=== PATIENT | male | born 1980 | race Caucasian/White ===

== ENCOUNTER 2016-06-10 14:14 | Emergency (ER) | payer MEDICAID ==
[2016-06-10 14:23] VITALS: BP 134/80
--- NOTE | 2016-06-10 14:43 | ERNOTE ---
Medical Problem HPI - Narrative Date of Service: 06/10/16 - General Chief Complaint: General Assessment Time Seen by Provider: 06/10/16 14:40 Source: patient Exam Limitations: no limitations - Immun/Allergies/Home Medications Immunizations: IMMUNIZATION HX Immunizations Up to Date Yes History of Influenza Vaccine No Hx Pneumococcal Vaccination No Allergies/Adverse Reactions: Allergies No Known Allergies Allergy (Verified 06/10/16 14:23) Home Medications: HOME MEDICATIONS metFORMIN HCL [Glucophage] 1,000 mg PO BIDWM #60 tablet 06/10/16 [Last Taken Unknown] - History of Present History Narrative: 36 yo, M, presents to ED for refill of Metformin 1000mg po BID, which he takes for DMII. He was previously seeing Dr. Taylor at [facility] endocrinology. States medication ran out yesterday and [facility]'s printed a form stating the refills were out and [facility] stated Dr. Taylor no longer at [facility] and he needs to establish with a new provider. He does not have a PCP. BG at home running 145 after meals. Review of Systems - Review of Systems Constitutional: Absent: fever, chills, weakness, malaise Respiratory: Absent: shortness of breath, cough Gastrointestinal/Abdominal: Absent: nausea, vomiting, abdominal pain Genitourinary: Absent: frequency Endocrine: Absent: increased thirst, increased urine - Patient's Past Medical History Patient History - Medical: Diabetes Type 2 Patient History - Cancer: No Hx of Cancer Patient History - Surgical Procedures: No surgical history - Social History Living Situations: home Smoking Status: Current every day smoker Have you smoked in the past 12 months: Yes Alcohol Use: none Drug Use: none Physical Exam - Physical Exam General Appearance: Present: wd/wn, alert, no apparent distress Respiratory: Present: no respiratory distress, normal breath sounds. Absent: rales, rhonchi, wheezing Cardiovascular/Chest: Present: regular rate, rhythm, no murmur Skin Exam: Present: normal color, warm/dry ED Progress - Date and Time Seen: Date and Time: 06/10/16 14:49 Discussed need to establish with a PCP, as well as [employer]. Physician directory provided. - Vital Signs Patient's Vital Signs:: I have reviewed the patient's vital signs. Vital Signs: Vital Signs 06/10/16 14:19 Temperature 36.5 C Pulse Rate 95 Respiratory 16 Rate Blood Pressure 134/80 O2 Sat by Pulse 98 Oximetry - Progress/Reassessment Chief Complaint: General Assessment Departure - Departure Clinical Impression: Diabetes Qualifiers: Diabetes mellitus type: type 2 Diabetes mellitus complication status: without complication Diabetes mellitus shelter insulin use: without shelter use Qualified Code(s): E11.9 - Type 2 diabetes mellitus without complications Disposition: Home self-care Condition: Good Instructions: Diabetes and Standards of Medical Care Additional Instructions: Please call today to schedule appt with [employer] for DM mgmt Set up appointment with a primary care doctor for routine health care Referrals: Sohan Balderas DO [Staff Physician] - Prescriptions: metFORMIN HCL [Glucophage] 1,000 mg PO BIDWM #60 tablet
== END 2016-06-10 15:10 | disposition home or self-care (01) ==
LOC: ER 14:14
DX: E11.9 Type 2 diabetes mellitus without complications (principal); F17.210 Nicotine dependence, cigarettes, uncomplicated

== ENCOUNTER 2016-07-10 16:02 | Emergency (ER) | payer MEDICAID ==
[2016-07-10 16:17] VITALS: BP 128/78
--- NOTE | 2016-07-10 16:27 | ERNOTE ---
Medical Problem HPI - Narrative Date of Service: 07/10/16 - General Chief Complaint: General Assessment Time Seen by Provider: 07/10/16 16:19 Source: patient, RN notes reviewed - Immun/Allergies/Home Medications Immunizations: IMMUNIZATION HX Immunizations Up to Date Yes History of Influenza Vaccine No Hx Pneumococcal Vaccination No Allergies/Adverse Reactions: Allergies No Known Allergies Allergy (Verified 07/10/16 16:17) Home Medications: HOME MEDICATIONS metFORMIN HCL [Glucophage] 1,000 mg PO BIDWM #60 tablet 06/10/16 [Last Taken Unknown] Metformin HCl [Glumetza] 1,000 mg PO BID #60 tab 07/10/16 [Last Taken Unknown] - Pain Score Pain Score #1 Pain Score: 0 - History of Present History Narrative: 36 yo male with history of diabetes who presents to er seeking refill of his metformin. does not have established pcp in [facility]. has seen endocrine at [facility] in the past - last in 2015. last metformin pill taken last night. Timing: constant Severity: moderate Review of Systems - Review of Systems Constitutional: Present: no symptoms reported EYE: Present: no symptoms reported ENT: Present: no symptoms reported Respiratory: Present: no symptoms reported Cardiology: Present: no symptoms reported Gastrointestinal/Abdominal: Present: no symptoms reported Genitourinary: Present: no symptoms reported Musculoskeletal: Present: no symptoms reported Skin: Present: no symptoms reported Neurological: Present: no symptoms reported Endocrine: Present: no symptoms reported Hematologic/Lymphatic: Present: no symptoms reported Psych: Present: no symptoms reported All Other Systems: All systems neg except as marked - Patient's Past Medical History Patient History - Medical: Diabetes Type 2 Patient History - Cardiac/Respiratory: No pertinent hx Patient History - Cancer: No Hx of Cancer Patient History - Surgical Procedures: No surgical history Patient History - Other: None - Social History Living Situations: home Abuse History: No History of abuse Psych History: No pertinent hx Smoking Status: Current every day smoker Have you smoked in the past 12 months: Yes Alcohol Use: none Drug Use: none - Immunizations Immunizations Up to Date: Yes Hx Pneumococcal Vaccination: No History of Influenza Vaccine: No Physical Exam - Physical Exam General Appearance: Present: wd/wn, alert, no apparent distress Eye Exam: Normal inspection: bilateral Ears, Nose, Throat: Present: normal ENT inspection, hearing grossly normal, normal pharynx Neck: Present: normal inspection, nontender, supple, full range of motion Respiratory: Present: no respiratory distress, normal breath sounds, no accessory muscle use, chest nontender, lungs clear Cardiovascular/Chest: Present: regular rate, rhythm, no murmur, normal peripheral pulses Gastrointestinal/Abdominal: Present: nontender, nondistended, soft Rectal Exam: Present: deferred Male Genitals Exam: Present: deferred Back Exam: Present: normal inspection, no vertebral tenderness Extremity Exam: Present: normal inspection, non-tender, no edema, normal range of motion Neurological Exam: Present: alert, oriented, normal mood/affect, no motor/ sensory deficits Skin Exam: Present: normal color, warm/dry ED Progress - Results and Orders Results and Orders: Laboratory Tests 07/10/16 16:30 WBC 9.5 RBC 5.04 Hgb 15.5 Hct 44.6 MCV 88.5 MCH 30.8 MCHC 34.8 RDW 11.7 Plt Count 215 MPV 8.6 Immature Gran % (Auto) 0.40 Immature Gran # (Auto) 0.04 H Neutrophils % 59.2 Lymphocytes % 32.1 Monocytes % 5.9 Eosinophils % 1.9 Basophils % 0.5 Nucleated RBC % 0.0 Neutrophils # 5.6 Lymphocytes # 3.1 Monocytes # 0.6 Eosinophils # 0.2 Absolute Basophils 0.1 Laboratory Tests 07/10/16 16:30 Sodium 140 Plasma Sodium 142 Potassium 4.0 Chloride 103 Carbon Dioxide 26.0 Anion Gap 15.0 H BUN 14 Creatinine 0.80 Est GFR (Non-Af Amer) 115 BUN/Creatinine Ratio 17.5 Random Glucose 195 H Calcium 8.6 Calcium Adj for Albumin 8.4 Total Bilirubin 0.3 AST 13 ALT 30 Alkaline Phosphatase 49 L Total Protein 7.0 Albumin 3.9 - Vital Signs Vital Signs: Vital Signs 07/10/16 16:15 Temperature 36.3 C L Pulse Rate 97 Respiratory 14 Rate Blood Pressure 128/78 O2 Sat by Pulse 98 Oximetry - Progress/Reassessment Chief Complaint: General Assessment Progress:: Re-examined Departure - Departure Clinical Impression: Diabetes Qualifiers: Diabetes mellitus type: type 2 Diabetes mellitus complication status: without complication Diabetes mellitus shelter insulin use: without exterminator helper use Qualified Code(s): E11.9 - Type 2 diabetes mellitus without complications Disposition: Home self-care Condition: Good Instructions: Linagliptin; Metformin extended-release tablets Additional Instructions: call tuesday for [facility] clinic ([phone]) as ask to be set up with a provider who is taking new patients. Prescriptions: Metformin HCl [Glumetza] 1,000 mg PO BID #60 tab
[2016-07-10 16:42] LABS: Hematocrit 44.6 % (42.0-52.0); Hemoglobin 15.5 gm/dL (13.5-18.0); Mean Cell Volume 88.5 fl (78-100); Mean Corpuscular Hemoglobin 30.8 pg (27-31); Mean Corpuscular Hgb Conc 34.8 g/dl (32-36); Mean Platelet Volume 8.6 fl (6.0-9.5); Neutrophil # 5.6 K/mm3 (1.3-6.0); Neutrophil % 59.2 % (42-75.0); Platelet Count 215 K/mm3 (150-450); Red Blood Count 5.04 M/mm3 (4.7-6.0); Red Cell Distribution Width 11.7 % (11.5-14.0); White Blood Count 9.5 K/mm3 (4.0-10.5)
[2016-07-10 16:53] LABS: Albumin * 3.9 gm/dl (3.4-5.0); BUN/Creatinine Ratio 17.5 (9.0-21.6); Bilirubin, Total 0.3 mg/dL (0.0-1.1); Ca. Corrected For Albumin 8.4 mg/dL (8.4-10.2); Calcium * 8.6 mg/dL (7.9-10.9)
[2016-07-10 17:16] LABS: Hemoglobin A1C 6.1 % (4.00-6.0)
== END 2016-07-10 17:23 | disposition home or self-care (01) ==
LOC: ER 16:02
DX: E11.9 Type 2 diabetes mellitus without complications (principal); F17.210 Nicotine dependence, cigarettes, uncomplicated

== ENCOUNTER 2016-08-13 15:09 | Emergency (ER) | payer MEDICAID ==
--- NOTE | 2016-08-13 16:00 | ERNOTE ---
Medical Problem HPI - Narrative Date of Service: 08/13/16 - General Chief Complaint: General Assessment Time Seen by Provider: 08/13/16 15:35 Source: patient Exam Limitations: no limitations - Immun/Allergies/Home Medications Immunizations: IMMUNIZATION HX Immunizations Up to Date Yes History of Influenza Vaccine No Hx Pneumococcal Vaccination No Allergies/Adverse Reactions: Allergies No Known Allergies Allergy (Verified 07/10/16 16:17) Home Medications: HOME MEDICATIONS metFORMIN HCL [Glucophage] 1,000 mg PO BIDWM #60 tablet 06/10/16 [Last Taken Unknown] Metformin HCl [Glumetza] 1,000 mg PO BID #60 tab 07/10/16 [Last Taken Unknown] metFORMIN HCL [Glucophage] 1,000 mg PO BID #10 tablet 08/13/16 [Last Taken Unknown] - History of Present History Narrative: 36-year-old male presenting to the emergency room for a metformin refill. She' s been out of his medication for 2 days and would like a refill. States he sees a specialist on Tuesday. Date (Duration): 08/13/16 Timing: constant Severity: mild Review of Systems - Review of Systems Constitutional: Present: no symptoms reported EYE: Present: no symptoms reported ENT: Present: no symptoms reported Respiratory: Present: no symptoms reported Cardiology: Present: no symptoms reported Gastrointestinal/Abdominal: Present: no symptoms reported Genitourinary: Present: no symptoms reported Musculoskeletal: Present: no symptoms reported Skin: Present: no symptoms reported Neurological: Present: no symptoms reported Endocrine: Present: no symptoms reported, See HPI Hematologic/Lymphatic: Present: no symptoms reported Psych: Present: no symptoms reported All Other Systems: All systems neg except as marked - Narrative Narrative: This is patient's third visit to the emergency room for prescription medication refills. Patient does state that he has a appointment with his cementer helper on Tuesday - Patient's Past Medical History Patient History - Medical: Diabetes Type 2 Patient History - Cardiac/Respiratory: No pertinent hx Patient History - Cancer: No Hx of Cancer Patient History - Surgical Procedures: No surgical history Patient History - Other: None - Social History Living Situations: home Abuse History: No History of abuse Psych History: No pertinent hx Alcohol Use: none Drug Use: none - Immunizations Immunizations Up to Date: Yes Hx Pneumococcal Vaccination: No History of Influenza Vaccine: No Physical Exam - Physical Exam Narrative: Exam is negative patient does have blood glucose of 169 General Appearance: Present: wd/wn, alert, no apparent distress Ears, Nose, Throat: Present: normal ENT inspection Neck: Present: normal inspection Respiratory: Present: no respiratory distress Cardiovascular/Chest: Present: regular rate, rhythm Gastrointestinal/Abdominal: Present: normal bowel sounds Neurological Exam: Present: alert, oriented. Absent: motor weakness Skin Exam: Present: normal color Lymphatic Exam: Present: no adenopathy ED Progress - Vital Signs Patient's Vital Signs:: I have reviewed the patient's vital signs. Vital Signs: Vital Signs 08/13/16 15:16 Temperature 36.7 C Pulse Rate 88 Respiratory 16 Rate Blood Pressure 135/87 O2 Sat by Pulse 98 Oximetry - Progress/Reassessment Chief Complaint: General Assessment Progress:: Unchanged Plan - Plan Plan: After lab work patient will be given a 10 day supply of metformin. he is to follow-up with his cementer helper on Tuesday Departure - Departure Clinical Impression: Diabetes Qualifiers: Diabetes mellitus type: type 2 Diabetes mellitus complication status: without complication Diabetes mellitus mcfp insulin use: without mcfp use Qualified Code(s): E11.9 - Type 2 diabetes mellitus without complications Disposition: Home Follow Up Needed Condition: Stable Instructions: Blood Glucose Monitoring, Adult Additional Instructions: Continue to take her medications as prescribed. Continue with follow-up appointment on Tuesday with his cementer helper. Referrals: Vidya Tillman FNP [Primary Care Provider] - Prescriptions: metFORMIN HCL [Glucophage] 1,000 mg PO BID #10 tablet
[2016-08-13 16:07] LABS: Anion Gap 11.8 mmol/L (6.8-13.8); BUN/Creatinine Ratio 9.7 (9.0-21.6); Bilirubin, Total 0.2 mg/dL (0.0-1.1); Ca. Corrected For Albumin 8.3 mg/dL (8.4-10.2); Calcium * 8.6 mg/dL (7.9-10.9); Carbon Dioxide 28.3 mmol/L (24-32.6); Potassium 4.1 mmol/L (3.4-4.6); Total Protein 6.9 gm/dL (6.2-8.2)
--- OUTSIDE RECORDS SUMMARY | 2016-08-13 16:25 | XMS REPORT | Continuity of Care Document ---
:1980 Author Organization [facility] ([facility]) Address [place] [address] Phone [phone] Care Team Providers Name Role Phone Vidya Tillman Primary Care Provider [phone] Source Comments This disclosure is being made pursuant to the Care Everywhere program, applicable federal and state laws, and may not contain all informaitonavailable regarding this patient.[facility] ([facility]) Active Allergies and Adverse Reactions No Known Allergies Current Medications Prescription Sig. Disp. Refills Start Date End Date Status metFORMIN 1,000 mg Take one tablet by 180 tablet 3 06/16/2015 Active tablet mouth twice daily. 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, noncystoid 07/29/2015 Type 2 diabetes mellitus without complication 07/14/2015 Myopia of both eyes 07/14/2015 Drusen of left macula 07/14/2015 Overweight (BMI 25.0-29.9) 06/13/2014 Diabetes mellitus type 2, uncontrolled 08/14/2013 Resolved Problems Problem Noted Date Resolved Date Diabetes mellitus 06/13/2014 12/27/2014 Most Recent Encounters Date Type Specialty Providers Description 08/11/2016 Refill Diabetes Services Jailyn Benoit, Dx: Type 2 diabetes PA-C mellitus without complication (Primary Dx) 06/10/2016 Telephone Diabetes Services Dung Taylor MD Chief Comp: Follow-up Social History Tobacco Use Types Packs/Day Years Used Date Current Every Day Smoker Cigarettes 2 20 Smokeless Tobacco: Former User Chew Tobacco Cessation:Ready to Quit: No; Counseling Given: Yes Comments: Alcohol Use Drinks/Week oz/Week Comments No Last Filed Vital Signs Vital Sign Reading Time Taken Blood Pressure 128/76 06/20/2015 11:23 AM PHOTOVOLTAIC TECHNICIAN Pulse 91 06/20/2015 11:23 AM PHOTOVOLTAIC TECHNICIAN Temperature 35.9 C (96.6 F) 06/20/2015 11:23 AM PHOTOVOLTAIC TECHNICIAN Respiratory Rate - - Height 1.829 m (6' 0.01") 06/20/2015 11:23 AM PHOTOVOLTAIC TECHNICIAN Weight 96 kg (211 lb 10.3 oz) 06/20/2015 11:23 AM PHOTOVOLTAIC TECHNICIAN Body Mass Index 28.7 06/20/2015 11:23 AM PHOTOVOLTAIC TECHNICIAN Oxygen Saturation - - Plan of Care Date Type Specialty Providers Description 08/16/2016 Appointment Diabetes Services Default, Other Billg - [facility] [address] [place] [address] [phone] (Fax) Subj: Appointment Jailyn Benoit PA-C [address] [place] [address] [phone] (Fax) Scheduled Health Maintenance Due Date Last Done Comments Hepatitis B Vaccine (1 of 3 - 1980 Primary Series) Tdap Vaccine 1989 DIABETIC: Cholesterol 01/24/1996 Diabetic: Hdl 01/24/1996 DIABETIC: Microalbumin 01/24/1996 DIABETIC: Triglycerides 01/24/1996 MMR Vaccine 01/24/1996 Td Vaccine 01/24/1996 Pneumococcal Vaccine (1 of 1 1997 - PPSV23) DIABETIC: Foot Exam 08/14/2013 Diabetic: Ldl 08/14/2014 08/14/2013 DIABETIC: Hemoglobin A1C 12/19/2015 06/20/2015, Additional history exists 12/20/2014, 06/11/2014 Influenza Vaccine: Seasonal 01/05/2016 (#1) DIABETIC: Retinal Eye Exam 09/30/2016 10/01/2015, 07/14/2015 Results from Last 3 Months Not on file
[2016-08-13 16:34] VITALS: BP 132/88
== END 2016-08-13 16:35 | disposition home or self-care (01) ==
LOC: ER 15:09
DX: E11.9 Type 2 diabetes mellitus without complications (principal)